=== PATIENT | female | born 1990 | race Caucasian/White ===

== ENCOUNTER → 2018-06-13 | Outpatient (CLI) | payer OTHER ==
[~2018-06-13] VITALS: Ht 180.3 cm; Wt 113.4 kg
[~2018-06-13] MED LIST: ABILIFY20 MG PO; ALDACTONE100 MG PO; AMITRIPTYLINE H10 M3 PO; CLONAZEPAM 0.50.5 M1 PO; FABRAZYME IV; FLEXERIL PO; LEVSIN0.125 MG PO; METFORMIN HCL500 MG PO; MILI 0.25-0.031 EACH PO; NEURONTIN600 MG PO
[2018-06-13 07:51] VITALS: BP 106/70
--- NOTE | 2018-06-13 11:49 | TEE ---
[facility] [employer] [place] [address] TRANSESOPHAGEAL ECHOCARDIOGRAM Name: AILEEN AGUILLON Room #: REG [facility]#: [id number] ������������� Admission: 06/13/18 ������������� Attend Phys: Kirk Monk, Discharge: ��� ������������� ��� Date of : 89 Date of Service: 06/13/18 1149 �� Report #: [id number] �������� ��������������������������������������������[id number] THIS REPORT FOR: //name// APPROVED REPORT Study performed: 06/13/2018 09:23:55 EXAM: Comprehensive 2D, Doppler, and color-flow Echocardiogram Patient Location: Out-Patient Status: routine BSA: 2.32 HR: 65 bpm BP: 118/63 mmHg Rhythm: NSR Other Information Study Quality: Good Indications Rule out bicuspid aortic valve. Echo Enhancing Agent Indication: Rule out Shunt Agent(s) / Amount(s) Used: Agitated Saline 6 cc Procedure After obtaining informed consent, patient underwent transesophageal echo in the [employer]. Type of Sedation : Conscious Sedation Sedation was administered by Rachna Lima RN. Sedation was achieved intravenously with: Versed (3) Fentanyl (150) Transesophageal probe was inserted and advanced into esophagus without difficulty by Kirk Monk MD. The CJ was performed without complications. Throughout the procedure, the blood pressure, pulse oximetry, cardiac rhythm, and rate were monitored. The patient tolerated the procedure without adverse effects. Recovery from conscious sedation was uneventful and vital signs were stable. Left Ventricle The left ventricle is normal size. There is normal LV segmental wall motion. There is normal left ventricular wall thickness. Left [facility] [address] [place] [address] TRANSESOPHAGEAL ECHOCARDIOGRAM Name: AILEEN AGUILLON Room #: REG CL [employer].#: [id number] ������������� Admission: 06/13/18 ������������� Attend Phys: Kirk Monk, Discharge: ��� ������������� ��� Date of : 89 Date of Service: 06/13/18 1149 �� Report #: [id number] �������� ��������������������������������������������[id number] ventricular systolic function is normal. LVEF is 55%. Right Ventricle The right ventricle is normal size. The right ventricular systolic function is normal. Atria The left atrium size is normal. No thrombus is visualized in the left atrium or appendage. No shunting noted with contrast bubble injection. The right atrium size is normal. Aortic Valve Cannot exclude quadricuspid valve No aortic regurgitation is present. There is no aortic valvular stenosis. Mitral Valve The mitral valve is normal in structure. There is no mitral valve regurgitation noted. No evidence of mitral valve stenosis. Tricuspid Valve The tricuspid valve is normal in structure. There is no tricuspid valve regurgitation noted. Pulmonic Valve The pulmonary valve is normal in structure. There is no pulmonic valvular regurgitation. Great Vessels The aortic root is normal in size. IVC is normal in size and collapses >50% with inspiration. Pericardium There is no pericardial effusion. <Conclusion> Left ventricular systolic function is normal. There is normal left ventricular wall thickness. Normal LV segmental wall motion. The left atrium size is normal. No thrombus is visualized in the left atrium or appendage. No shunting noted with contrast bubble injection. Cannot exclude quadricuspid valve. No aortic regurgitation or stenosis The mitral valve is normal in structure. No mitral valve [facility] [address] [place] [address] TRANSESOPHAGEAL ECHOCARDIOGRAM Name: AILEEN AGUILLON Room #: REG [facility]#: [id number] ������������� Admission: 06/13/18 ������������� Attend Phys: Kirk Monk, Discharge: ��� ������������� ��� Date of : 89 Date of Service: 06/13/18 1149 �� Report #: [id number] �������� ��������������������������������������������[id number] regurgitation noted. There is no pericardial effusion. ��������������������������������������������� <ELECTRONICALLY SIGNED> ���������������������������������������� By: Kirk Monk MD, [facility] ��������������������������������������������� 06/13/18 1149 1149 1149 Kirk Monk MD, FAC /INF
== END | disposition home or self-care (01) ==
LOC: CATH 06:59
DX: Q23.1 Congenital insufficiency of aortic valve (principal); R00.2 Palpitations; E78.5 Hyperlipidemia, unspecified; K21.9 Gastro-esophageal reflux disease without esophagitis; Z90.49 Acquired absence of other specified parts of digestive tract; Z98.890 Other specified postprocedural states; Z79.899 Other long term (current) drug therapy; Z88.8 Allergy status to other drugs, medicaments and biological substances

== ENCOUNTER → 2019-07-19 | Outpatient (CLI) | payer OTHER | LOC: SJCVCIMAG 08:11 | DX: R55 Syncope and collapse (principal); E28.2 Polycystic ovarian syndrome; E75.21 Fabry (-Anderson) disease; R42 Dizziness and giddiness; G62.9 Polyneuropathy, unspecified; E66.9 Obesity, unspecified; Z90.49 Acquired absence of other specified parts of digestive tract; Z79.899 Other long term (current) drug therapy ==